=== PATIENT | male | born 1960 | race American Indian/Alaskan Native ===

== ENCOUNTER 2018-08-21 16:51 | Emergency (ER) | payer MEDICARE ==
--- NOTE | 2018-08-21 21:11 | Emergency Department Report ---
- General Chief Complaint: Upper Respiratory Infection Stated Complaint: RT ARM PAIN Time Seen by Provider: 08/21/18 19:57 Source: patient Mode of arrival: Ambulatory Limitations: No Limitations - History of Present Illness Initial Comments: 58-year-old -[place] male with a past medical history of arthritis comes to the emergency room for complaint of cold symptoms for 2 months. Patient also has complaint of right arm inability to raise above head. Patient reports that it hurts to sleep on the right side. Patient reports his arm is giving him problems for 3-4 days. He has a decrease in appetite but drinking warm water well. Pain is achy. Patient reports 2 recent size primary care provider one week ago and was placed on penicillin and Remeron. Patient does admit to smoking cigarettes. MD Complaint: cough, other (right shoulder pain.) -: month(s) (2) Severity: moderate Quality: aching Consistency: intermittent Improves With: nothing Worsens With: other (moving his right shoulder) Associated Symptoms: cough, weight loss. denies: fever, chills, diaphoresis, headache, rhinorrhea, nasal congestion, shortness of breath, abdominal pain, nausea, vomiting Treatments Prior to Arrival: antibiotics (PCN) - Related Data Previous Rx's Medication Instructions Recorded Last Taken Type Benzonatate [Tessalon Perles] 100 mg PO Q8HR #15 capsule 08/21/18 Unknown Rx Diclofenac Sodium 25 mg PO Q8H PRN #15 tablet. 08/21/18 Unknown Rx Allergies Allergy/AdvReac Type Severity Reaction Status Date / Time No Known Allergies Allergy Unverified 08/21/18 16:53 ED Review of Systems ROS: Stated complaint: RT ARM PAIN Other details as noted in HPI Comment: All other systems reviewed and negative Respiratory: cough Endocrine: no symptoms reported Gastrointestinal: denies: abdominal pain, nausea, diarrhea Genitourinary: denies: urgency, dysuria Musculoskeletal: arthralgia (right shoulder) ED Past Medical Hx - Past Medical History Hx Arthritis: Yes - Surgical History Additional Surgical History: knee - Social History Smoking Status: Current Every Day Smoker Substance Use Type: None - Medications Home Medications: Home Medications Medication Instructions Recorded Confirmed Last Taken Type Benzonatate [Tessalon Perles] 100 mg PO Q8HR #15 capsule 08/21/18 Unknown Rx Diclofenac Sodium 25 mg PO Q8H PRN #15 tablet. 08/21/18 Unknown Rx ED Physical Exam - General Limitations: No Limitations General appearance: alert, in no apparent distress - Head Head exam: Present: atraumatic, normocephalic - Eye Eye exam: Present: normal appearance - ENT ENT exam: Present: mucous membranes moist - Neck Neck exam: Present: normal inspection, full ROM - Respiratory Respiratory exam: Present: normal lung sounds bilaterally. Absent: respiratory distress - Cardiovascular Cardiovascular Exam: Present: regular rate, normal rhythm. Absent: systolic murmur, diastolic murmur, rubs, gallop - Expanded Upper Extremity Exam Right Shoulder Exam: Present: full ROM (with pain), tenderness over AC joint. Absent: swelling, abrasion, laceration, ecchymosis Upper Arm exam: Present: tenderness (deltoid). Absent: swelling, laceration, ecchymosis, deformity, crepidus, dislocation, erythema Elbow exam: Present: normal inspection, full ROM Forearm Wrist exam: Present: normal inspection, full ROM Hand Wrist exam: Present: normal inspection, full ROM ED Course Vital Signs 08/21/18 17:02 Temperature 97.9 F Pulse Rate 92 H Respiratory 16 Rate Blood Pressure 125/86 O2 Sat by Pulse 94 Oximetry ED Medical Decision Making - Radiology Data Radiology results: report reviewed Patient: SEMAJ CALVILLO MR#: [id number] 8 : 1960 Acct:[id number] Age/Sex: 58 / M ADM Date: 08/21/18 Loc: ED Attending Dr: Ordering Physician: LUDWIG ESCAMILLA Date of Service: 08/21/18 Procedure(s): XR shoulder 2+V RT Accession Number(s): [id number] cc: LUDWIG ESCAMILLA Fluoro Time In Minutes: XR SHOULDER 2+V RT CLINICAL INDICATION: Male, 58 years of age. shoulder pain COMPARISON: None. FINDINGS: 3 views right shoulder obtained. Mild osteophyte of the humeral head and distal clavicle. No acute fracture or dislocation. IMPRESSION: Mild degenerative changes. No acute fracture or dislocation. This document is electronically signed by Mynor Marley DO., August 21 2018 09:24:04 PM ET Transcribed By: LMA Dictated By: MUSTAPHA MARLEY MD Electronically Authenticated By: MUSTAPHA MARLEY MD Signed Date/Time: 08/21/182124 DD/ 15 TD/TT: 08/21/182115 Patient: SEMAJ CALVILLO MR#: [id number] 8 : 1960 Acct:[id number] Age/Sex: 58 / M ADM Date: 08/21/18 Loc: ED Attending Dr: Ordering Physician: LUDWIG ESCAMILLA Date of Service: 08/21/18 Procedure(s): XR chest routine 2V Accession Number(s): [id number] cc: LUDWIG ESCAMILLA Fluoro Time In Minutes: XR CHEST ROUTINE 2V CLINICAL INDICATION: Male, 58 years of age. cough for 2 months COMPARISON: None. Findings: Frontal and lateral views of the chest were obtained. Cardiac silhouette is within normal limits. No focal consolidation or effusion. No pneumothorax. Visualized bony structures are grossly intact. IMPRESSION: No acute findings. This document is electronically signed by Mynor Marley DO., August 21 2018 09:23:19 PM ET Transcribed By: LMA Dictated By: MUSTAPHA MARLEY MD Electronically Authenticated By: MUSTAPHA MARLEY MD Signed Date/Time: 08/21/182124 DD/ 15 TD/TT: 08/21/182115 - Medical Decision Making Patient has been evaluated by this provider in fast track. X-ray of right shoulder shows mild degenerative joint disease. AKA arthritis. Chest x-ray shows no cardiopulmonary abnormalities. We'll discharge patient home on Tessalon Perles and diclofenac for pain management. Patient is to follow-up with his primary care provider Dr. Trujillo. Critical care attestation.: If time is entered above; I have spent that time in minutes in the direct care of this critically ill patient, excluding procedure time. ED Disposition Clinical Impression: Cough in adult patient, Right anterior shoulder pain Disposition: -01 TO HOME OR SELFCARE Is pt being admited?: No Does the pt Need Aspirin: No Condition: Stable Instructions: Shoulder Sprain (ED), Cold Symptoms (ED), Arthralgia (ED), Acute Cough (ED) Additional Instructions: Please take medications as prescribed. Follow up with her primary care provider if his symptoms persist or gets worse. Your cough or improved to stop smoking cigarettes. Prescriptions: Diclofenac Sodium 25 mg PO Q8H PRN #[address] tablet[address] PARKINSON Reason: Pain , Severe (7-10) Benzonatate [Tessalon Perles] 100 mg PO Q8HR #15 capsule Referrals: MENDEZ HODGES MD [Primary Care Provider] - 3-5 Days Forms: Work/School Release Form(ED)
--- NOTE | 2018-08-21 21:25 | XRay Report ---
XR CHEST ROUTINE 2V CLINICAL INDICATION: Male, 58 years of age. cough for 2 months COMPARISON: None. Findings: Frontal and lateral views of the chest were obtained. Cardiac silhouette is within normal limits. No focal consolidation or effusion. No pneumothorax. Visualized bony structures are grossly intact. IMPRESSION: No acute findings. This document is electronically signed by Mynor Marley DO., August 21 2018 09:23:19 PM ET
--- NOTE | 2018-08-21 21:25 | XRay Report ---
XR SHOULDER 2+V RT CLINICAL INDICATION: Male, 58 years of age. shoulder pain COMPARISON: None. FINDINGS: 3 views right shoulder obtained. Mild osteophyte of the humeral head and distal clavicle. N o acute fracture or dislocation. IMPRESSION: Mild degenerative changes. No acute fracture or dislocation. This document is electronically signed by Mynor Marley DO., August 21 2018 09:24:04 PM ET
[2018-08-21 22:02] VITALS: BP 132/84
== END 2018-08-21 22:01 | disposition home or self-care (01) ==
LOC: ED 16:51
DX: R05 Cough (principal); M25.511 Pain in right shoulder; J45.909 Unspecified asthma, uncomplicated; F17.200 Nicotine dependence, unspecified, uncomplicated
CPT/HCPCS: 71046; 99283

== ENCOUNTER 2019-11-01 14:00 | Emergency (ER) | payer MEDICARE ==
[2019-11-01] MEDS ORDERED: DIPHtheria,PERTUSSIS(ACELL),TETANUS VACCINE/PF 0.5 ML VIAL IM ONE ×2 (17:05→19:56)
--- NOTE | 2019-11-01 17:06 | Event Note ---
ED Screening Note ED Screening Note: hand smashed between the ground and transmission laceration to left fingers unsure last tetanus is able to move fingers no numbness or weakness This initial assessment/diagnostic orders/clinical plan/treatment(s) is/are subject to change based on patients health status, clinical progression and re-assessment by fellow clinical providers in the ED. Further treatment and workup at subsequent clinical providers discretion. Patient/guardian urged not to elope from the ED as their condition may be serious if not clinically assessed and managed. Initial orders include: XR hand tetanus Immunizations UTD
--- NOTE | 2019-11-01 17:41 | XRay Report ---
LEFT HAND 3 VIEWS INDICATION: hand smashed by transmission, lac to hand. COMPARISON: No relevant prior imaging study available. FINDINGS: No acute, displaced fracture or dislocation is seen. Mild osteoarthrosis changes are noted. No foreig n bodies. IMPRESSION: 1. No acute fracture. Signer Name: Keegan Dodd MD Signed: 11/01/2019 5:36 PM Workstation Name: [id number]
[2019-11-01] MEDS ORDERED: LIDOCAINE (2%) 20 MG/1 ML VIAL 20 ML MDV INFILTRATI STA (19:31)
--- NOTE | 2019-11-01 19:43 | Emergency Department Report ---
ED Laceration HPI - HPI Chief Complaint: Extremity Injury, Upper Stated Complaint: RT HAND LAC Time Seen by Provider: 11/01/19 17:03 Occurred When: Today Location: Upper Extremity (left hand 3rd digit linear laceration 1.5 cm) Severity: mild, moderate Tetanus Status: Not up to Date ED Review of Systems ROS: Stated complaint: RT HAND LAC Other details as noted in HPI Constitutional: denies: chills, fever Eyes: denies: eye pain, eye discharge, vision change ENT: denies: ear pain, throat pain Respiratory: denies: cough, shortness of breath, wheezing Cardiovascular: denies: chest pain, palpitations Endocrine: no symptoms reported Gastrointestinal: denies: abdominal pain, nausea, diarrhea Genitourinary: denies: urgency, dysuria Musculoskeletal: denies: back pain, joint swelling, arthralgia Skin: denies: rash, lesions Neurological: denies: headache, weakness, paresthesias Psychiatric: denies: anxiety, depression Hematological/Lymphatic: denies: easy bleeding, easy bruising ED Past Medical Hx - Past Medical History Hx Arthritis: Yes - Surgical History Past Surgical History?: Yes Additional Surgical History: left knee - Social History Smoking Status: Current Every Day Smoker Substance Use Type: None - Medications Home Medications: Home Medications Medication Instructions Recorded Confirmed Last Taken Type Benzonatate [Tessalon Perles] 100 mg PO Q8HR #15 capsule 08/21/18 Unknown Rx Diclofenac Sodium 25 mg PO Q8H PRN #15 tablet. 08/21/18 Unknown Rx Ketorolac [Toradol] 10 mg PO Q6H PRN #14 tablet 11/01/19 Unknown Rx cephALEXin [Keflex] 500 mg PO Q6HR #40 capsule 11/01/19 Unknown Rx Laceration Physical Exam - Exam General: Vital signs noted. No distress. Alert and acting appropriately. Full Body Front + Back: 1 - linear laceration to plamar aspect of left finger Laceration Exam: Yes Normal Distal CMS, No Foreign Body, No Exposed Tendon, Vessel, or Nerve, No Tendon Injury ED Course Vital Signs 11/01/19 14:08 Temperature 97.5 F L Pulse Rate 94 H Respiratory 20 Rate Blood Pressure 139/97 O2 Sat by Pulse 95 Oximetry - Procedure Description Procedures done: Reprepped and draped sterile fashion anesthesia achieved with 2% lidocaine with no epinephrine for pulling was placed in simple interrupted fashion for wound closure with good approximation utilizing 4-0 Prolene x3 ED Medical Decision Making - Radiology Data Radiology results: report reviewed Print Report Referring Physician:ZAHRA ANGUIANOPatient Name:SEMAJ CALVILLOPatient ID:[id number] of :[id number]:MaleAccession:[id number] Date:[id number] Status:Finalized Findings [facility] [address] [place] [address] XRay Report Signed Patient: SEMAJ CALVILLO MR#: [id number] 8 : 1960 Acct:[id number] Age/Sex: 59 / M ADM Date: 11/01/19 Loc: ED Attending Dr: Ordering Physician: LUDWIG EUCEDA Date of Service: 11/01/19 Procedure(s): XR hand 3+V LT Accession Number(s): [id number] cc: LUDWIG EUCEDA Fluoro Time In Minutes: LEFT HAND 3 VIEWS INDICATION: hand smashed by transmission, lac to hand. COMPARISON: No relevant prior imaging study available. FINDINGS: No acute, displaced fracture or dislocation is seen. Mild osteoarthrosis changes are noted. No foreign bodies. IMPRESSION: 1. No acute fracture. Signer Name: Keegan Dodd MD Signed: 11/01/2019 5:36 PM Workstation Name: [id number] Transcribed By: NISA Dictated By: Keegan Dodd MD Electronically Authenticated By: Keegan Dodd MD Signed Date/Time: 11/01/191735 DD/ 35 TD/TT: Critical care attestation.: If time is entered above; I have spent that time in minutes in the direct care of this critically ill patient, excluding procedure time. ED Disposition Clinical Impression: Laceration of finger of left hand Disposition: DC-01 TO HOME OR SELFCARE Is pt being admited?: No Does the pt Need Aspirin: No Condition: Stable Instructions: Suture Care (ED), Laceration (ED), Finger Laceration (ED) Prescriptions: cephALEXin [Keflex] 500 mg PO Q6HR #40 capsule Ketorolac [Toradol] 10 mg PO Q6H PRN #14 tablet PRN Reason: Pain Referrals: PRIMARY CARE, [Primary Care Provider] - 7-10 days (Please follow-up for suture removal evaluation in 10 days) [facility] [Provider Group] - 3-5 Days
[2019-11-01 20:27] VITALS: BP 146/100
== END 2019-11-01 21:10 | disposition home or self-care (01) ==
LOC: ED 14:00
DX: S61.412A Laceration without foreign body of left hand, initial encounter (principal); M19.90 Unspecified osteoarthritis, unspecified site; F17.200 Nicotine dependence, unspecified, uncomplicated; Z79.899 Other long term (current) drug therapy; Z88.4 Allergy status to anesthetic agent; X58.XXXA Exposure to other specified factors, initial encounter; Y93.89 Activity, other specified; Y92.89 Other specified places as the place of occurrence of the external cause; Y99.8 Other external cause status
CPT/HCPCS: 90471; 90715; 99283